=== PATIENT | male | born 1985 | race Caucasian/White ===

== ENCOUNTER 2020-06-26 15:23 | Emergency (ER) | payer OTHER, SELFPAY ==
--- NOTE | ~2020-06-26 | XR_ITS ---
EXAMINATION: CHEST 1 VIEW CLINICAL INFORMATION: Cough. Pneumonia. COMPARISON: None. TECHNIQUE: An AP view of the chest is provided. FINDINGS: The cardiac silhouette is not enlarged. The mediastinal and hilar contours are unremarkable. There are neither pleural effusions nor pneumothoraces. There are no consolidations. The osseous structures are unremarkable. XR/XR chest 1V IMPRESSION: No evidence for acute disease.
[2020-06-26 15:59] VITALS: BP 161/74; PULSE 77; RESP 18; TEMP 37.1; O2SAT 95; BMI 39.5
[2020-06-26 17:02] LABS: Influenza A PCR NEGATIVE (Negative); Influenza B PCR NEGATIVE (Negative); Resp Syncy Virus RNA Qual PCR NEGATIVE (Negative); SARS COV2 PCR INHOUSE NEGATIVE (Negative)
--- NOTE | 2020-06-26 17:29 | ED_ITS ---
HPI - General Adult General Chief complaint: Dyspnea Stated complaint: covis symptoms Time Seen by Provider: 06/26/20 15:56 Source: patient Mode of arrival: ambulatory Limitations: no limitations History of Present Illness HPI narrative: Patient presents to ED for coughing, chills, body aches, and mild shortness of breath for the past 3 days. Patient denies any chest pain, swelling of lower extremities, calf pain, recent drug use, recent long travel, recent surgery, recent trauma, or history of blood clots. Patient states he was exposed to his friend last week guide fever, chills, body aches, and cough. Pat ient presently denies any shortness of breath or chest pain. Patient came to ED to be evaluated for COVID. Related Data Previous Rx's Medication Instructions Recorded benzonatate [Tessalon Perles] 100 mg PO TID PRN #15 cap 06/26/20 Allergies Allergy/AdvReac Type Severity Reaction Status Date / Time No Known Allergies Allergy Unverified 11/19/19 19:49 [No Known Allergies*] Review of Systems Review of Systems: Yes all other systems are reviewed and are negative Constitutional: Constitutional: Reports as per HPI, Reports no additional constitutional complaints, Reports body ache(s) and Reports chills Eyes: Eyes: Reports as per HPI and Reports no additional eye complaints ENT: Reports system reviewed and no additional complaints, except as documented and Reports as per HPI Cardiovascular: Cardiovascular: Reports as per HPI, Reports no additional cardiovascular complaints, Denies chest pain, Denies dyspnea on exertion, Denies orthopnea and Denies paroxysmal nocturnal dyspnea Respiratory: Respiratory: Reports as per HPI, Reports no additional respiratory complaints, Reports cough and Denies dyspnea on exertion Gastrointestinal: Gastrointestinal: Reports as per HPI and Reports no additional gastrointestinal complaints Musculoskeletal: Musculoskeletal: Reports no additional musculoskeletal complaints and Reports as per HPI Neurologic: Reports system reviewed and no additional complaints, except as documented and Reports as per HPI [facility] Social History Social History Advance Directives: No Advance Directives Information Provided: No Physical Exam Vital Signs: Vital Signs: Last Vital Signs Temp 98.7 F 06/26/20 15:59 Pulse 77 06/26/20 15:59 Resp 18 06/26/20 15:59 BP 161/74 H 06/26/20 15:59 Pulse Ox 95 06/26/20 15:59 Body Mass Index 39.5 Const: General: cooperative, healthy appearing, comfortable, no acute distress, well developed, alert, awake and Physically active Orientation/consciousness: patient oriented x3 HENMT: Head: Yes normal to inspection, Yes No palpable skull fracture present, Yes normocephalic, Yes atraumatic, No abrasion, No Luna's sign, No contusion, No cranial bruits, No hematoma, No laceration, No occipital foramen tenderness, No palpable skull fracture, No raccoon eyes, No scalp lesion, No scalp tenderness, No Temporal artery tenderness present and No periorbital ecchymosis Eyes: General: appearance normal, both eyes and all related structures Neck: Neck: Yes normal visual inspection, Yes full ROM, Yes no lymphadenopathy, Yes no meningeal signs, Yes trachea midline, Yes supple and No tender Chest: Chest palpation & inspection: normal inspection of the chest and normal palpation of entire chest wall Resp: Effort & Inspection: normal respiratory effort and able to speak in complete sentences Auscultation: clear to auscultation bilaterally and wheezes (Diffuse) expiratory wheezes Cardio: Jugular venous distension: no JVD Heart sounds: S1 normal heart sound present and S2 normal heart sound present GI: Inspection: Yes normal to inspection and No abdominal wall ecchymosis Palpation (GI): Soft to palpation, not firm, nontender, no guarding and not rigid : General: No CVA tenderness and Yes no CVA tenderness Back/Spine/Pelvis: Back: no CVA tenderness, No CVA tenderness and No back tenderness Skin: General skin exam: no rashes or lesions noted and elasticity normal Neuro: General: patient oriented x3, gait normal, no meningeal signs and CN's II-XI intact bilaterally Cranial nerves: Yes CN's II-XII intact bilaterally Extrem: Other: Lower extremities bilaterally negative for any pitting edema, calf tenderness, pain, or redness. Psych: Appearance: grossly normal, well kempt and not disheveled Course Course Course Narrative: Patient have COVID swab drawn and sent for chest x-ray. Differential bronchitis. Patient has no history of asthma. Reevaluation(s) Reevaluation #1: COVID swab, flu swab and RSV swab came back negative. His x- ray negative for pneumonia. Diagnosis bronchitis. Patient awaiting respiratory therapist to give him albuterol inhaler and show him how to use it. Patient informed his symptoms worsen he should get retested for COVID in next 72 hours or self isolate. Medical Decision Making Lab Data Labs: Lab Results 06/26/20 Range/Units 16:12 Coronavirus (PCR) NEGATIVE (Negative) Influenza Type A (PCR) NEGATIVE (Negative) Influenza Type B (PCR) NEGATIVE (Negative) RSV RNA Qual (PCR) NEGATIVE (Negative) Discharge Plan Discharge Clinical Impression: Bronchitis Patient Disposition: Home, Self-Care Instructions: Acute Bronchitis (ED) Additional Instructions: Return to ED for any chest pain, shortness of breath, swelling of lower extremities, calf pain, coughing up blood, fever, chills, chest pain inspiration, shortness of breath on exertion, or any other concerning symptoms. Please use as instructed albuterol inhaler ( given to you buy respiratory therapists) 2 puffs every 4-6 hours as needed. Prescriptions: New benzonatate [Tessalon Perles] 100 mg capsule 100 mg PO TID PRN (Reason: cough) Qty: 15 RF: 0 Stand Alone Forms: Work/School Release Interventions: ED Discharge Assessment Last Done: 06/26/20 18:24 Print Language: Tanzanian
[2020-06-26] MEDS: Albuterol Sulfate 90 MCG 8 GM INHALER 4 PUFF INHALE (17:59)
== END 2020-06-26 18:31 | disposition home or self-care (01) ==
PROVIDERS: Physician Assistant; Emergency Provider Emergency Medicine Emergency Medical Services
DX: J20.8 Acute bronchitis due to other specified organisms (principal); R06.02 Shortness of breath; M79.10 Myalgia, unspecified site; Z79.899 Other long term (current) drug therapy; Z20.822 Contact with and (suspected) exposure to COVID-19
CPT/HCPCS: 0241U; 36415; 71045; 94640; 99283

== ENCOUNTER 2022-06-26 20:15 | Emergency (ER) | payer OTHER, SELFPAY ==
--- NOTE | ~2022-06-26 | XR_ITS ---
EXAMINATION: XR CHEST CLINICAL INFORMATION: Overdose. Unresponsive status post Narcan. COMPARISON: 06/26/2020 TECHNIQUE: Frontal view of the chest was obtained. FINDINGS: Cardiac leads overlie the chest. The lungs are well expanded. There is no focal consolidation, edema, or effusion. No pneumothorax. The cardiomediastinal silhouette is within normal limits. No acute osseous abnormality. XR/XR chest 1V IMPRESSION: No acute pulmonary disease.
[2022-06-26 20:20] VITALS: BP 139/76; BP 154/76; PULSE 93; PULSE 99; RESP 18; TEMP 36.8; O2SAT 96; O2SAT 98; BMI 43.8
--- NOTE | 2022-06-26 20:38 | PC.NURSE ---
this rn assumed care of pt @ 2019. pt biba for overdose. pt placed on cardiac cath lab radiology technologist. pt calm and cooperative. vss. security at bedside to secure pt belongings. pt awaiting to be seen by ed provider
--- NOTE | 2022-06-26 20:55 | ED.OVERDOSE ---
HPI - Overdose General Chief Complaint: Overdose Stated Complaint: Overdose Time Seen by Provider: 06/26/22 20:34 Source: patient and EMS Mode of arrival: EMS Limitations: no limitations History of Present Illness HPI Narrative: 36-year-old male with history of IV drug abuse presents to the emergency department accidental overdose, patient tells me that today he is 1 bag of IV heroin, accidentally overdosed while in the bathroom. He tells me that he uses 2 times a week and typically uses 1 or 2 bags. He is trying to stop using. Reports that he recently moved back to this area where it is readily available and purchase some heroin after work today. He has had an overdose in the past. He received Narcan 4 mg intranasally prior to arrival. He tells me he remembers slipping off of the toilet however no head strike. Not on blood thinners. Patient denies any medical complaints at this time. Denies suicidal and homicidal ideation. Related Data Previous Rx's Medication Instructions Recorded benzonatate 100 mg capsule 100 mg PO TID PRN cough #15 caps 06/26/20 (Tessalon Perles) naloxone 4 mg/actuation nasal 4 mg intranasal Q2M PRN opioid 06/26/22 spray (Narcan) overdose #2 ea Allergies Allergy/AdvReac Type Severity Reaction Status Date / Time No Known Allergies Allergy Unverified 11/19/19 19:49 [No Known Allergies*] Review of Systems Review of Systems: Constitutional : No Weight loss, No Fever, No Chills, No Fatigue, No Malaise ENT/Mouth : No sore throat, No Rhinorrhea Eyes: No Eye Pain, No Swelling, No Redness Cardiovascular : No Chest Pain, No SOB, No Dyspnea on Exertion, No Orthopnea, No Edema, No Palpitations Respiratory : No Cough, No Sputum, No Wheezing Gastrointestinal : No Nausea, No Vomiting, No Diarrhea, No Constipation, No abdominal Pain, No Hematochezia, No Melena Genitourinary : No Dysuria, No Urinary Frequency, No Hematuria, Musculoskeletal : No joint pain, No Myalgias, No Joint Swelling Skin : No Skin Lesions, No rash Neuro : No Weakness, No Numbness, No Dizziness, No Headache Psych : No Anxiety/Panic, No Depression All other systems reviewed and are negative Yes all other systems are reviewed and are negative [facility] Past Medical History Attestation statement: The following information was validated with the patient. Source: old records reviewed and nursing notes reviewed Social History Social History Smoked in Last 30 Days: Yes Use of substances other than those prescribed or required for medical reasons: Yes Substance Use Type: Crack/Cocaine and Heroin Substance Use Frequency: Daily Last Used Substance: Just Prior to Admission Advance Directives: No Advance Directives Information Provided: No Physical Exam Vital Signs: Vital Signs: Last Vital Signs Temp 98.3 F 06/26/22 20:20 Pulse 93 06/26/22 20:20 Resp 18 06/26/22 20:20 BP 139/76 06/26/22 20:20 Pulse Ox 96 06/26/22 20:20 O2 Del Method Room Air 06/26/22 20:20 BMI result Body Mass Index 43.8 Vital signs stable Appearance: Alert.? Oriented X3.? No acute distress.? Head: Normocephalic, atraumatic, no step-offs or deformities Eyes: Pupils equal, round and reactive to light.? CVS: Normal heart rate and rhythm.? Pulses normal.? Respiratory: No respiratory distress.? Breath sounds normal.? Abdomen: Soft and nontender.? Skin: Skin warm and dry.? Normal skin color.? Normal skin turgor.? Extremities: No lower extremity edema.? No calf ttp. 5/5 strength to bilateral upper and lower extremities Neuro: Oriented X 3.? No motor deficit.? No sensory deficit. CN 2-12 intact . Normal [id number], lyur-ir-yold, steady tandem gait normal coordination. NIH stroke scale 0. GCS 15 Course Reevaluation(s) Reevaluation #1: Patient alert and oriented x4, chest x-ray unremarkable. Time: 22:53 Reevaluation #2: Care team evaluating patient at this time. Patient to be discharged home with Narcan. Educated patient on diagnosis and treatment plan, answered all question, patient verbalizes understanding. At this time patient will be discharged home, advised to return with new or worsening symptoms. Educated on worrisome signs and symptoms and when to return. At this time I feel comfortable discharge home. Time: 22:53 Critical Care Time Critical Care Time Critical Care Time: No Discharge Plan Discharge Clinical Impression: Drug overdose Patient Disposition: Home, Self-Care Instructions: Adult Overdose (ED) Additional Instructions: Take your medications as prescribed. If you were prescribed antibiotics today, it is important that you take your medication to their entirety, do not skip any doses, do not finish them early. Follow-up with your primary care provider this week. Return to the emergency department with new or worsening symptoms. Such as fevers, chills, chest pain, shortness of breath, nausea, vomiting, dizziness, headache, vision changes, lethargy In case of emergency call 911 XR/XR chest 1V IMPRESSION: No acute pulmonary disease. ? Prescriptions: New naloxone [Narcan] 4 mg/actuation spray,non-aerosol 4 mg intranasal Q2M PRN (Reason: opioid overdose) Qty: 2 0RF Rx Instructions: spray 1 dose into ONE nostril; alternate nostrils w each dose until help arrives No Action benzonatate [Tessalon Perles] 100 mg capsule 100 mg PO TID PRN (Reason: cough) Qty: 15 0RF Referrals: Physician,Unknown J [Primary Care Provider] - 2 days Stand Alone Forms: Work/School Release
--- NOTE | 2022-06-26 22:59 | HO.SUDE ---
CARE Team met with pt for an SUDE eval. Pt was pleasant on approach and states he is very familiar with recovery services. Pt reports that he works [employer] and will return to work tomorrow. He states he did not relapse and has been using and is interested in detox however would like to do it on his own. Pt states that he has great family support at home and wishes to return home. He denies SI/HI. He was provided with Recovery resources and discussed with ED provider Tanika Herrera.
[2022-06-26 23:34] VITALS: BP 122/77; PULSE 64; RESP 16; TEMP 36.9; O2SAT 98
--- NOTE | 2022-06-26 23:50 | PC.NURSE ---
vss. pt ambulatory at discharge. pt provided with work note and discharge packt. pt verbalized understanding of discharge plan. this rn walked pt to [facility] to obtain belongings from security. pt discharge from [facility]
== END 2022-06-26 23:50 | disposition home or self-care (01) ==
PROVIDERS: Emergency Provider Emergency Medicine
DX: T40.1X1A Poisoning by heroin, accidental (unintentional), initial encounter (principal); Y92.9 Unspecified place or not applicable; F11.10 Opioid abuse, uncomplicated; Z71.51 Drug abuse counseling and surveillance of drug abuser; Z79.899 Other long term (current) drug therapy
CPT/HCPCS: 71045; 99284; 99285